=== PATIENT | male | born 1965 | race Caucasian/White ===

== ENCOUNTER → 2021-11-12 07:14 | Outpatient (CLI) | payer SELFPAY ==
--- NOTE | 2021-11-12 | DI.US.S_ITS ---
PROCEDURE: US SCROTUM INDICATIONS: RIGHT TESTICULAR PAIN TECHNIQUE: Real-time scanning was performed of the scrotum and testicles, with image documentation. Color and pulse Doppler interrogation was performed of both testicles. COMPARISON: None. FINDINGS: Right: Testicle is normal in size at 4.9 x 2.5 x 3.2 cm, and homogenous in echotexture. Epididymis is normal in overall size and morphology. There is a small right-sided hydrocele. Overlying scrotal skin is normal in thickness. Left: Testicle is normal in size at 4.1 x 2.4 x 2.9 cm, and homogeneous in echotexture. Epididymis is normal in overall size and morphology. A Modic left-sided hydrocele can be seen. Overlying scrotal skin is normal in thickness. Doppler: Color and pulse Doppler demonstrate normal and symmetric arterial flow in both testicles. Negative for varicocele. IMPRESSION: Normal appearing testicles, without masses or abnormal vascularity. Bilateral hydroceles are seen, left worse than right. Dictated by: Mert Silva M.D. on 11/12/2021 at 9:06 Approved by: Mert Silva M.D. on 11/12/2021 at 9:07
== END ==
PROVIDERS: Family Provider Family Medicine; PCP Family Medicine; Referring Provider Family Medicine; Visit Provider Family Medicine
DX: N50.89 Other specified disorders of the male genital organs (principal); N50.811 Right testicular pain; N43.3 Hydrocele, unspecified
CPT/HCPCS: 76870

== ENCOUNTER → 2022-12-27 15:45 | Outpatient (CLI) | payer OTHER, SELFPAY ==
--- NOTE | 2022-12-27 | DI.RAD.S_ITS ---
PROCEDURE: XR CHEST 2V INDICATIONS: CHEST PRESSURE TECHNIQUE: 2 views of the chest were acquired. COMPARISON: None. FINDINGS: Surgical changes and devices: None. Lungs and pleura: Lungs are clear. No pleural effusions or pneumothorax. Mediastinum: Mediastinal contours are normal. Heart size is normal. Bones and chest wall: No suspicious bony abnormalities. Soft tissues appear unremarkable. IMPRESSION: No acute cardiopulmonary pathology. Dictated by: Yordy Alvares M.D. on 12/27/2022 at 16:38 Approved by: Yordy Alvares M.D. on 12/27/2022 at 16:38
== END ==
PROVIDERS: Family Provider Family Medicine; PCP Family Medicine; Referring Provider Family Medicine; Visit Provider Family Medicine
DX: R07.89 Other chest pain (principal)
CPT/HCPCS: 71046

== ENCOUNTER → 2023-02-16 | Outpatient (CLI) | payer OTHER, SELFPAY ==
--- NOTE | 2023-02-16 20:43 | DI.NM.S_ITS ---
DATE OF SERVICE: 02/16/2023 STUDY: Exercise perfusion study. INDICATIONS: Chest pain. RADIOPHARMACEUTICAL: 24.9 mCi technetium-99m Myoview IV was injected at stress, and 12.4 mCi technetium-99m Myoview IV was injected at rest. CARDIAC STRESS: The patient underwent exercise perfusion stress test under the supervision of an attending staff. The patient walked on Anselmo protocol for 9 minutes and 43 seconds, achieved maximum heart rate of 148, which was 91% of target heart rate. Resting blood pressure 116/80. Peak blood pressure 158/100. Achieved 10.1 METS of workload. ROSALIND -7%. Baseline rhythm was sinus with some flattening and less than [address] depression in inferior leads and leads V5 to V6 with some T-wave inversion and occasional PACs. During stress, no convincing new ischemic changes seen. No complex arrhythmias like AFib or ventricular tachycardia seen. No anginal symptoms. RAW DATA: There is increased subdiaphragmatic activity. GATED STUDY: Stress LV ejection fraction 68% without any obvious wall motion abnormalities. Resting end-diastolic volume 134 mL. TID ratio 1.0, which is within normal limits. Lung/heart ratio 0.28, which is within normal limits. MYOCARDIAL PERFUSION SCAN: Stress supine, resting supine and stress prone images were compared to each other. Stress supine images revealed small size, mildly decreased perfusion of inferior wall extending into the inferior septum which got significantly improved during stress prone images suggestive of diaphragmatic tissue attenuation artifact. No convincing ischemia or infarction pattern seen. CONCLUSION: I will call this study likely a normal myocardial perfusion study with evidence of diaphragmatic tissue attenuation artifact, which got improved during stress prone images. Good exercise tolerance. Normal hemodynamic response. No anginal symptoms. No convincing ischemic electrocardiographic changes or complex arrhythmias. Preserved left ventricular function. Overall low risk exercise myocardial perfusion scan. Sujit Joya - // doc#: [id number]/job#: [id number] dd: 02/16/2023 16:23:00 dt: 02/16/2023 20:14:00 DICTATING MD/COPIES TO: Emile Royal MD COPIES MNE: JENNIFER;
== END ==
LOC: NUCM 07:59
PROVIDERS: Family Provider Family Medicine; PCP Family Medicine; Referring Provider Family Medicine; Visit Provider Family Medicine
DX: R07.89 Other chest pain (principal)
CPT/HCPCS: 78452; 93017; A9502